=== PATIENT | male | born 1975 | race Caucasian/White ===

== ENCOUNTER 2022-04-20 07:17 | Emergency (ER) | payer OTHER, SELFPAY ==
[2022-04-20 07:36] VITALS: BP 137/75; PULSE 61; RESP 18; TEMP 36.7; O2SAT 96; BMI 23.6
[2022-04-20] MEDS: Ondansetron ODT 4 MG TAB.RAPDIS TRANSLINGU (08:03)
[2022-04-20 08:04] LABS: COVID-19 Test Negative (Negative)
[2022-04-20 09:03] VITALS: BP 110/60; PULSE 71; RESP 16; O2SAT 95
--- NOTE | 2022-04-20 09:59 | ED_ITS ---
HPI - Nausea/Vomiting/Diarrhea General Chief complaint: Nausea/Vomiting/Diarrhea Stated complaint: vomiting Time Seen by Provider: 04/20/22 07:37 Source: patient Mode of arrival: ambulatory History of Present Illness HPI Narrative: 46-year-old male with presentation for nausea, vomiting in the context of being a regular alcohol drinker. He otherwise denies any fever, chills, diarrhea and also states that it may have been the chicken pot pie that he had last night. Related Data Allergies Allergy/AdvReac Type Severity Reaction Status Date / Time bupropion [From Wellbutrin] Allergy Unknown Verified 04/20/22 07:36 Iodinated Contrast Media Allergy Unknown Verified 04/20/22 07:35 [Contrast Dye] Review of Systems Review of Systems: Pertinent positives and negatives as stated in HPI 10 point review of systems is otherwise negative. PMFSH Past Medical History Source: nursing notes reviewed Social History Social History Advance Directives: No Advance Directives Information Provided: No Physical Exam Vital Signs: Vital Signs: Last Vital Signs Temp 98.0 F 04/20/22 07:36 Pulse 71 04/20/22 09:03 Resp 16 04/20/22 09:03 BP 110/60 04/20/22 09:03 Pulse Ox 95 04/20/22 09:03 O2 Del Method 04/20/22 07:36 BMI result Body Mass Index 23.6 VITAL SIGNS: Reviewed. GENERAL: Well developed, well nourished, in no acute distress. HEAD: Normocephalic/atraumatic EYES: PERRLA, EOMI EARS: Ext canals without abnormality OROPHARYNX: no oral lesions noted, posterior pharynx clear, no stigmata of bleeding, no abnormal smell LUNGS: Normal breath sounds. No adventitious sounds or accessory muscle use. SpO2<95> CARDIOVASCULAR: Regular rate and rhythm without noted murmurs ABDOMEN: Soft, non-tender, non-distended with bowel sounds. MUSCULOSKELETAL: No tenderness, deformities, or effusions noted on gross inspection. EXTREMITIES: No cyanosis, clubbing or edema. SKIN: Inspection of the skin reveals no rashes NEUROLOGIC: Alert and oriented x 4. Strength and sensation to light touch were grossly intact x 4. Course Course Course Narrative: 46-year-old male with history and clinical presentation mildly suggestive of gastroenteritis versus alcohol gastritis, at the time of my evaluation patient's symptoms had completely resolved after getting sublingual Zofran. Review of all investigations otherwise negative, patient received a GI cocktail and was noted to be able to tolerate oral intake. He is otherwise discharged home in stable condition no objective data to suggest any acute bleed in suspect that what patient noticed in his vomitus may have been irritation. MDM - Nausea/Vomiting/Diarrhea Lab Data Labs: Lab Results 04/20/22 Range/Units 07:45 COVID-19 ([facility]) Negative (Negative) COVID-19 Clin Com See Note Discharge Plan Discharge Clinical Impression: Gastroenteritis, Alcohol use Patient Disposition: Home, Self-Care Instructions: Gastroenteritis (ED), Alcohol Use Disorder (ED) Additional Instructions: 1. Continue to drink plenty of water. 2. Recommend bland diet and starting [id number]-bouypcl medication such as Mylanta to help soothe your stomach. 3. Follow-up with your primary care provider in the next 1-2 days for re- evaluation. Return to the ER for worsening symptoms. Stand Alone Forms: Work/School Release
[2022-04-20] MEDS: Lidocaine HCl Viscous 2 % 15 ML SOLUTION 10 ML MUCOUS MEM (10:36)
[2022-04-20] MEDS: Magnesium Hydrox/Alum Hydrox 30 ML ORAL.SUSP PO (10:36)
[2022-04-20 10:50] VITALS: BP 107/65; PULSE 52; RESP 16; O2SAT 98
== END 2022-04-20 11:43 | disposition home or self-care (01) ==
PROVIDERS: Emergency Provider Student in an Organized Health Care Education/Training Program
DX: K52.9 Noninfective gastroenteritis and colitis, unspecified (principal); R11.2 Nausea with vomiting, unspecified; F10.10 Alcohol abuse, uncomplicated; Y90.9 Presence of alcohol in blood, level not specified; Z20.822 Contact with and (suspected) exposure to COVID-19
CPT/HCPCS: 87635; 99283; 99284